=== PATIENT | male | born 1940 | race African-American/Black ===

== ENCOUNTER 2017-08-04 03:50 | Emergency (ER) | payer OTHER ==
--- NOTE | 2017-08-04 04:11 | PDOC ---
History of Present Illness - General History Source: EMS, Old Records Exam Limitations: No Limitations - History of Present Illness Initial Comments: 08/04/17 04:47 The patient is a 76 year old male resident from [facility], with a significant past medical history of Dementia, HTN, HLD, DM, Decubitus ulcers, Trach vent dependency who presents to the emergency department for evaluation of respiratory distress. As per senior care staff, patient had difficulty breathing on vent. Patient was seen using abdominal wall muscles to breathe and was sent to the ED. PAST MEDICAL HISTORY: no significant history PAST SURGICAL HISTORY: no significant history FAMILY HISTORY: no pertinent history SOCIAL HISTORY: Pt lives with family and is employed. MEDICATIONS: reviewed ALLERGIES: As per nursing notes Adult ROS ROS unobtainable. senior care states patient had difficulty breathing and was using abdominal muscles for breathing. General: +Elderly, cachectic, chronically ill appearing male trach dependant. HEENT: Throat: Normal, tonsils normal, no erythema or exudate Neck: Supple, no meningeal signs, no lymphadenopathy Eyes::Pupils equal reactive and round, extraocular motion intact. Chest: Nontender to palpation Cardiac: Tachycardic. S1-S2 normal, regular rate and rhythm, no murmurs rubs or gallops Respiratory: +Decreased BS bilaterally with ?? rhonchi bilateral. Abdomen: Soft, nondistended, normal bowel sounds, nontender to palpation diffusely Extremities: multiple contractures and pads over bony prominences. Warm, dry, no cyanosis, clubbing, or edema Skin: +Buttocks has 4 very large decubiti, 2 on each buttocks. All 4 decubiti are necrotic with necrotic discharge and bone visible in the base of the cavity. Surrounding erythema and large amount of tissue breakdown. Neuro: Nonmobile nonverbal unable to follow commands. <Carmela Chi - Last Filed: 08/04/17 06:54> - General History Source: Patient Exam Limitations: No Limitations - History of Present Illness Initial Comments: 08/04/17 06:50 A portion of this note was documented by scribe services under my direction. I have reviewed the details of the note, within reason, and agree with the documentation. The case summary and management plan written by me. 07:00 Case discussed in detail with oncoming Emergency Physician including history, physical exam and ancillary studies. Oncoming Emergency Physician has assumed care for the patient and will complete the evaluation and treatment. Patient is aware of the plan. Pt is clinically unchanged and stable. Pt signed out to Dr. Guido. <Deyvi Gautam I - Last Filed: 08/04/17 19:30> - General Stated Complaint: DIFFICULTY BREATHING Time Seen by Provider: 08/04/17 04:05 Past History <Carmela Chi - Last Filed: 08/04/17 06:54> <Deyvi Gautam I - Last Filed: 08/04/17 19:30> - Past Medical History Allergies/Adverse Reactions: Allergies Allergy/AdvReac Type Severity Reaction Status Date / Time No Known Allergies Allergy Verified 08/04/17 07:35 Home Medications: Ambulatory Orders Acetaminophen [Tylenol] 325 mg PEG DAILY 08/04/17 Albuterol 2.5/Ipratropium 0.5 [Duoneb -] 3 ml PRN 08/04/17 Ascorbic Acid [Vitamin C] 500 mg PEG DAILY 08/04/17 Ferrous Sulfate [Ferosul] 300 mg PEG DAILY 08/04/17 Finasteride [Proscar] 5 mg PEG DAILY 08/04/17 Insulin (Levemir) [Levemir Vial] 100 unit SQ DAILY 08/04/17 Insulin Lispro [Humalog] 100 unit SQ Q4HWA 08/04/17 Mirtazapine 30 mg PEG HS 08/04/17 Pantoprazole Sodium [Protonix -] 40 mg PEG DAILY 08/04/17 Valproate Sodium Liquid [Depakene] 250 mg GT BID 08/04/17 *Physical Exam - Vital Signs Last Vital Signs Temp Pulse Resp BP Pulse Ox 102 H 12 99 08/04/17 04:14 08/04/17 04:14 08/04/17 04:14 <Carmela Chi - Last Filed: 08/04/17 06:54> ED Treatment Course - LABORATORY CBC & Chemistry Diagram: 08/04/17 06:00 08/04/17 06:00 <Carmela Chi - Last Filed: 08/04/17 06:54> - LABORATORY CBC & Chemistry Diagram: 08/04/17 06:00 08/04/17 06:00 <Deyvi Gautam I - Last Filed: 08/04/17 19:30> *DC/Admit/Observation/Transfer - Attestations Scribe Attestion: 08/04/17 04:47 Documentation prepared by Carmela Chi, acting as medical reception for Deyvi Gautam MD <Carmela Chi - Last Filed: 08/04/17 06:54> <Deyvi Gautam I - Last Filed: 08/04/17 19:30> Diagnosis at time of Disposition: Decubitus ulcer - Discharge Dispostion Disposition: [facility]AY FACILITY Condition at time of disposition: Stable - Referrals Referrals: Lin Valiente MD [Primary Care Provider] - - Patient Instructions Printed Discharge Instructions: How to Prevent Pressure Ulcers Additional Instructions: Please continue the antibiotics to treat the patient's decubitus ulcers. Have the surgery team reassess his wounds as soon as possible. Return to the ER immediately if the patient experiences fevers, vital sign abnormalities, shortness of breath, or any other concerning symptoms.
[2017-08-04] MEDS ORDERED: SODIUM CHLORIDE 1,000 ML IV ONE (04:38)
[2017-08-04 06:33] LABS: BASOPHIL 0.7 % (0-2.0); MCH 28.9 pg (25.7-33.7); MCHC 33.3 g/dl (32.0-35.9); MEAN CELL VOLUME 86.9 fl (80-96); MEAN PLT VOLUME 6.8 fl (7.5-11.1); NEUTROPHILS 80.3 % (42.8-82.8); PLATELET COUNT 662 K/MM3 (134-434); RDW 16.2 % (11.9-15.9); WHITE BLOOD COUNT 10.3 K/mm3 (4.0-10.0)
[2017-08-04 06:36] LABS: URINE APPEARANCE CLOUDY; URINE BILIRUBIN NEGATIVE (NEGATIVE); URINE BLOOD 2+ (NEGATIVE); URINE COLOR DKYELLOW; URINE GLUCOSE (UA) NEGATIVE (NEGATIVE); URINE KETONE NEGATIVE (NEGATIVE); URINE LEUK ESTERASE 2+ (NEGATIVE); URINE NITRITE NEGATIVE (NEGATIVE); URINE PROTEIN 1+ (NEGATIVE); URINE UROBILINOGEN NEGATIVE mg/dL (0.2-1.0)
[2017-08-04 06:41] LABS: URINE BACTERIA MODERATE /hpf (NONE SEEN); URINE MUCUS RARE; URINE RBC 139 /hpf (0-3); URINE WBC 25 /hpf (3-5); YEAST MANY
[2017-08-04] MEDS ORDERED: morphine CARPU-JECT 4 MG/1 ML DISP.SYRIN IVPUSH ONE (06:50)
[2017-08-04 07:09] LABS: ALBUMIN 1.2 g/dl (3.4-5.0); ANION GAP 4 (8-16); BILIRUBIN,TOTAL 0.3 mg/dL (0.2-1.0); CALCIUM 8.3 mg/dL (8.5-10.1); CO2 29 mmol/L (21-32); CREATININE 0.8 mg/dL (0.7-1.3); GLUCOSE,RANDOM 142 mg/dL (74-106); SGOT/AST 39 U/L (15-37); SGPT/ALT 13 U/L (12-78); TOT PROT 8.5 g/dl (6.4-8.2)
[2017-08-04 07:10] LABS: ALK PHOS 142 U/L (45-117)
[2017-08-04] MEDS ORDERED: VANCOMYCIN 1,000 MG in DEXTROSE 5%-WATER - 250 ML IVPB ONE (07:21)
[2017-08-04 07:36] VITALS: TEMP 99.5; BMI 50.3
[2017-08-04 07:48] LABS: CPK 80 IU/L (39-308)
[2017-08-04 07:49] LABS: TROPONIN I < 0.02 ng/ml (0.00-0.05)
--- NOTE | 2017-08-04 07:53 | PDOC ---
*Physical Exam - Vital Signs Last Vital Signs Temp Pulse Resp BP Pulse Ox 99.5 F 106 H 12 134/76 100 08/04/17 07:31 08/04/17 07:31 08/04/17 07:36 08/04/17 07:31 08/04/17 07:31 ED Treatment Course - LABORATORY CBC & Chemistry Diagram: 08/04/17 06:00 08/04/17 06:00 - ADDITIONAL ORDERS Additional order review: Laboratory Results 08/04/17 08/04/17 08/04/17 06:00 06:00 06:00 D-Dimer Sodium 135 L Potassium 4.8 Chloride 102 Carbon Dioxide 29 Anion Gap 4 L BUN 29 H Creatinine 0.8 Creat Clearance w eGFR > 60 Random Glucose 142 H Calcium 8.3 L Total Bilirubin 0.3 AST 39 H ALT 13 Alkaline Phosphatase 142 H B-Natriuretic Peptide 4556.53 H Total Protein 8.5 H Albumin 1.2 L Urine Color Dkyellow Urine Appearance Cloudy Urine pH 5.0 Urine Protein 1+ H Urine Glucose (UA) Negative Urine Ketones Negative Urine Blood 2+ H Urine Nitrite Negative Urine Bilirubin Negative Urine Urobilinogen Negative Urine RBC 139 Urine WBC 25 Urine Bacteria Moderate Urine Mucus Rare Urine Yeast Many 08/04/17 06:00 D-Dimer 1317 H Sodium Potassium Chloride Carbon Dioxide Anion Gap BUN Creatinine Creat Clearance w eGFR Random Glucose Calcium Total Bilirubin AST ALT Alkaline Phosphatase B-Natriuretic Peptide Total Protein Albumin Urine Color Urine Appearance Urine pH Urine Protein Urine Glucose (UA) Urine Ketones Urine Blood Urine Nitrite Urine Bilirubin Urine Urobilinogen Urine RBC Urine WBC Urine Bacteria Urine Mucus Urine Yeast 08/04/17 06:00 RBC 3.31 L MCV 86.9 MCHC 33.3 RDW 16.2 H MPV 6.8 L Neutrophils % 80.3 Lymphocytes % 9.5 Monocytes % 8.5 Eosinophils % 1.0 Basophils % 0.7 - Medications Given in the ED: ED Medications Discontinued Medications Generic Name Dose Route Start Last Admin Trade Name Freq PRN Reason Stop Dose Admin Morphine Sulfate 4 mg 08/04/17 06:50 08/04/17 07:14 Morphine Injection - IVPUSH 08/04/17 06:51 4 mg ONCE ONE Administration Medical Decision Making - Medical Decision Making 08/04/17 07:55 Sign out taken from Dr. Thomas at 7am. Pt is 76 yo M, chronically ill, who presents with acute onset SOB. Per overnight team, this was thought to be a mucous plug, as pt now has returned to baseline respiratory status, satting 100 on vent, in no acute distress. Plan at time of sign out was to admit pt for IV abx to treat his large infected decubitus ulcers. I personally spoke with Dr. Valiente, pt's primary provider, who states that he is actively involved in pt's care currently, as pt was just admitted to [facility] for anemia and discharged 2 days ago. Pt is also actively being followed by surgery team for his decubitus ulcers and receiving intermittent debridements as needed. He is currently receiving IV gentamicin at the longterm. Given that pt's respiratory status has now normalized and pt is receiving consistent and appropriate care for his wounds, I, in conjunction with Dr. Valiente, believe it is in the patient's best interest to return to his nursing facility, and I do not believe admission would contribute any additional benefit at this time. *DC/Admit/Observation/Transfer Diagnosis at time of Disposition: Decubitus ulcer - Discharge Dispostion Disposition: RETIREMENT FACILITY Condition at time of disposition: Stable - Referrals Referrals: Lin Valiente MD [Primary Care Provider] - - Patient Instructions Printed Discharge Instructions: How to Prevent Pressure Ulcers Additional Instructions: Please continue the antibiotics to treat the patient's decubitus ulcers. Have the surgery team reassess his wounds as soon as possible. Return to the ER immediately if the patient experiences fevers, vital sign abnormalities, shortness of breath, or any other concerning symptoms. - Post Discharge Activity
[2017-08-04 08:14] VITALS: PULSE 104
[2017-08-04] MEDS ORDERED: VANCOMYCIN 1 GRAM (PRE-DOCKED) 250 ML IVPB ONE (08:16)
[2017-08-04 10:02] VITALS: BP 124/77
--- NOTE | 2017-08-06 16:45 | EKG ---
Test Reason : Blood Pressure : / mmHG Vent. Rate : 105 BPM Atrial Rate : 105 BPM P-R Int : 142 ms QRS Dur : 078 ms QT Int : 340 ms P-R-T Axes : 077 054 100 degrees QTc Int : 449 ms SINUS TACHYCARDIA POSSIBLE LEFT ATRIAL ENLARGEMENT CANNOT RULE OUT SEPTAL INFARCT , AGE UNDETERMINED ABNORMAL ECG WHEN COMPARED WITH ECG OF 08-APR-2003 20:30, ST ELEVATION IS NO LONGER SEEN VENT. RATE HAS INCREASED CLINICAL CORRELATION IS RECOMMENDED Confirmed by PAUL DUMONT MD ([id number]) on 08/06/2017 4:44:44 PM Referred By: Confirmed By:PAUL DUMONT MD
--- NOTE | 2017-08-06 19:44 | PDOC ---
Patient Follow-up (Call Back) - Post ED Follow - Up Condition at time of discharge: Stable Disposition at time of original discharge: [facility]ENTI[facility] FACILITY Reason for Call Back: Abnwl. Microbiology (Wound C & S rt. buttock from 08/04/17 + for e coli ESBL, pt. was discharged was getting gentamycin IV, Dr. Lin Valiente notified, he recommended report be faxed to him at [phone].)
--- NOTE | 2017-08-07 08:16 | PDOC ---
Patient Follow-up (Call Back) - Post ED Follow - Up Condition at time of discharge: Stable Disposition at time of original discharge: [facility] Reason for Call Back: Abnwl. Microbiology (Preliminary shows Escherichia coli with group D strep, and Morganella, for wound cx with urine showing Escherichia coli. Patient currently on gentamicin IV. I will fax report to Dr. Valiente.)
== END 2017-08-04 10:02 ==
LOC: JER 03:50
PROC: 3E033NZ Introduction of Analgesics, Hypnotics, Sedatives into Peripheral Vein, Percutaneous Approach (ICD-10-PCS; principal; 2017-08-04)
DX: L98.419 Non-pressure chronic ulcer of buttock with unspecified severity (principal); I10 Essential (primary) hypertension; E78.00 Pure hypercholesterolemia, unspecified; E11.9 Type 2 diabetes mellitus without complications; Z79.4 Long term (current) use of insulin; F03.90 Unspecified dementia, unspecified severity, without behavioral disturbance, psychotic disturbance, mood disturbance, and anxiety; Z99.11 Dependence on respirator [ventilator] status
CPT/HCPCS: 36415; 71010-TC; 80053; 81003; 81015; 83880; 84484; 85025; 85379; 87040; 87070; 87077; 87086; 87186; 87205; 87324; 87449; 93005; 93010; 96374; 99285-25